=== PATIENT | female | born 1965 ===

== ENCOUNTER 2021-11-25 11:23 | Outpatient (CLI) | payer OTHER ==
[2021-11-25 16:49] LABS: Free T4 (Free Thyroxine) 1.77 ng/dL (0.70-1.48)
== END 2021-11-25 11:24 | disposition home or self-care (01) ==
LOC: MADLABBHPM 11:23 → MADLAB 11:24
PROVIDERS: ATTEND Family Medicine
DX: R94.6 Abnormal results of thyroid function studies (principal)
CPT/HCPCS: 84439; 84481